=== PATIENT | female | born 1980 | race Caucasian/White ===

== ENCOUNTER 2016-12-29 17:15 | Inpatient (IN) | payer OTHER ==
[2016-12-29] MEDS ORDERED: NALOXONE 0.4 MG/ML 1 ML VIAL IV STA ×3 (18:20→18:48)
[2016-12-29] MEDS ORDERED: SODIUM CHLORIDE 0.9% 2,000 ML IV ONE (18:20)
--- NOTE | 2016-12-29 18:38 | ED ---
General Adult HPI - General Source: patient, family, RN notes reviewed Mode of arrival: wheelchair Limitations: no limitations <Brenda Encarnacion - Last Filed: 12/29/16 19:41> <Stevenson Mcconnell - Last Filed: 12/29/16 21:43> - General Chief complaint: Headache Stated complaint: low blood pressure,dizzy Time Seen by Provider: 12/29/16 18:14 - History of Present Illness Initial comments: 36 yo female presents to the ER with a chief complaint of feeling confused. Patient patient with ranges feeling off. Patient does take chronic pain medication for chronic pain. Patient states she did take these this morning. Patient's states there has been no history of her using drugs. Patient states she takes her she's prescribed and nothing else. Patient states that when she stands up she started very lightheaded. She states sometimes she'll have blurry vision. She states that she's Goes in and out of confusion and feeling like shegoing on. states that he found her just sitting in the bathroom completely out of it so he was concerned. The patient states that she did have a fall today from feeling lightheaded but states that nothing hurts from that. Patient states she hasn't had any abdominal pain she hasn't had any pain with urination she hasn't thrown up. Patient states her whole body just feels weird that she feels a week. Patient states that she was concerned is concerned as well. Patient be seen. She denies any fever. She denies any chest pain or shortness of breath. (Brenda Encarnacion) - Related Data Home Medications Medication Instructions Recorded Confirmed Cyclobenzaprine [Flexeril] 10 mg PO TID 12/29/16 12/29/16 Gabapentin [Neurontin] 300 mg PO BID 12/29/16 12/29/16 LORazepam [Ativan] 0.5 mg PO BID PRN 12/29/16 12/29/16 Lisinopril [Zestril] 20 mg PO DAILY 12/29/16 12/29/16 Morphine Sulfate ER [Ms Contin 30 mg PO Q12HR 12/29/16 12/29/16 30Mg] PARoxetine [Paxil] 20 mg PO DAILY 12/29/16 12/29/16 oxyCODONE-APAP 7.5-325MG [Percocet 1 tab PO DAILY PRN 12/29/16 12/29/16 7.5-325 mg] Allergies Allergy/AdvReac Type Severity Reaction Status Date / Time alprazolam [From Xanax] Allergy Confusion Verified 12/29/16 18:49 Penicillins Allergy Rash/Hives Verified 12/29/16 18:49 Review of Systems ROS Other: All systems not noted in ROS Statement are negative. <Brenda Encarnacion - Last Filed: 12/29/16 19:41> ROS Other: All systems not noted in ROS Statement are negative. <Stevenson Mcconnell - Last Filed: 12/29/16 21:43> ROS Statement: Those systems with pertinent positive or pertinent negative responses have been documented in the HPI. Past Medical History Additional Past Medical History / Comment(s): brain injury History of Any Multi-Drug Resistant Organisms: None Reported Additional Past Surgical History / Comment(s): clavicle surgery Past Psychological History: Anxiety, Depression Smoking Status: Never smoker Past Alcohol Use History: None Reported Past Drug Use History: None Reported <Brenda Encarnacion - Last Filed: 12/29/16 19:41> General Exam Limitations: no limitations General appearance: alert Head exam: Present: atraumatic, normocephalic, normal inspection Eye exam: Present: normal appearance, PERRL, EOMI. Absent: scleral icterus, conjunctival injection, periorbital swelling ENT exam: Present: normal exam, mucous membranes moist Neck exam: Present: normal inspection. Absent: tenderness, meningismus, lymphadenopathy Respiratory exam: Present: normal lung sounds bilaterally. Absent: respiratory distress, wheezes, rales, rhonchi, stridor Cardiovascular Exam: Present: regular rate, normal rhythm, normal heart sounds. Absent: systolic murmur, diastolic murmur, rubs, gallop, clicks GI/Abdominal exam: Present: soft, normal bowel sounds. Absent: distended, tenderness, guarding, rebound, rigid Extremities exam: Present: normal inspection, full ROM, normal capillary refill. Absent: tenderness, pedal edema, joint swelling, calf tenderness Back exam: Present: normal inspection Neurological exam: Present: alert, oriented X3, CN II-XII intact, reflexes normal. Absent: motor sensory deficit Psychiatric exam: Present: normal affect, normal mood Skin exam: Present: warm, dry, intact, normal color. Absent: rash <Brenda Encarnacion - Last Filed: 12/29/16 19:41> Course <Brenda Encarnacion - Last Filed: 12/29/16 19:41> <Stevenson Mcconnell - Last Filed: 12/29/16 21:43> Vital Signs 12/29/16 12/29/16 12/29/16 17:53 19:09 19:41 Temperature 98.4 F Pulse Rate 108 H 118 H Respiratory 16 18 Rate Blood Pressure 76/46 94/50 88/51 O2 Sat by Pulse 94 L 96 Oximetry 12/29/16 12/29/16 12/29/16 19:51 21:17 21:32 Temperature Pulse Rate 129 H 111 H 117 H Respiratory 16 18 18 Rate Blood Pressure 88/54 76/40 101/51 O2 Sat by Pulse 100 100 99 Oximetry - Reevaluation(s) Reevaluation #1: 12/29/16 18:39 After the Narcan the patient states that she can breath better. Patient blood pressure is improving with IV hydration. (Brenda Encarnacion) Reevaluation #2: 12/29/16 19:41 With further history with the patient has had episodes of blackouts before however during that time she is always normal vital signs. He states this is different than her typical black out. The family worked up for in the hospital before. (Brenda Encarnacion) Reevaluation #3: 12/29/16 19:41 This case will be signed out to Dr. Mcconnell. (Brenda Encarnacion) EKG Findings - EKG Comments: EKG Findings:: Sinus tachycardia 126 bpm, normal axis, no atopy, no S-T depressions or elevations, <Brenda Encarnacion - Last Filed: 12/29/16 19:41> Medical Decision Making - Lab Data Result diagrams: 12/29/16 18:35 12/29/16 18:35 <Brenda Encarnacion - Last Filed: 12/29/16 19:41> - Lab Data Result diagrams: 12/29/16 18:35 12/29/16 18:35 <Stevenson Mcconnell - Last Filed: 12/29/16 21:43> - Medical Decision Making 36 yo female presents to the emergency Department chief complaint of altered mental status. Patient does appear to have hypotension 2 L of fluids and 2 IVs were started to hydrate the patient. Patient does have a history of using narcotic medication we did give her Narcan. (Brenda Encarnacion) Medical decision-making. The patient did arrive and is somewhat somnolent condition. Hypotensive. She was given IV Narcan on 3 occasions each time blood pressure went up and she became more alert. Patient states that she is on a pain management contract with her physician and must regardless of how she feels take all her pain medications. She states this morning when she didn't feel well she still to call her pain medications. The patient's labs show white count 13.6 hemoglobin 13 hematocrit of 45, INR 1.0 with a potassium 4.8 to BUN 20 creatinine 2.1 to the GFR of 26. All available history suggesting kidney failure. Glucose 140, troponin less than 0.012. Urine shows [address] of the brain was done and reviewed radiologist his findings are the ventricles and sulci appear normal. There is no mass effect or midline shift. There is no sign of intracranial hemorrhage. The calvarium is intact. Impression; negative unenhanced head computed tomography scan. As read by Dr. Maradiaga X-ray of the chest was done reviewed by radiologist his impression is no active cardiopulmonary disease. Normal heart. As read by Dr. Maradiaga The patient remains wide awake. Blood pressure 102/51. Heart rate stays in the 120 range. Patient reports her heart race normally 110-120. If tried to slow it down medications makes her feel worse. We did discuss the over administration of opiates, oxycodone coat on and benzodiazepines could result in . Dr. Mcconnell (Stevenson Mcconnell) - Lab Data Lab Results 12/29/16 12/29/16 12/29/16 Range/Units 18:35 18:35 18:35 WBC 13.6 H (3.8-10.6) k/uL RBC 5.73 H (3.80-5.40) m/uL Hgb 13.6 (11.4-16.0) gm/dL Hct 45.1 (34.0-46.0) % MCV 78.7 L (80.0-100.0) fL MCH 23.7 L (25.0-35.0) pg MCHC 30.2 L (31.0-37.0) g/dL RDW 14.2 (11.5-15.5) % Plt Count 303 (150-450) k/uL Neutrophils % 78 % Lymphocytes % 16 % Monocytes % 4 % Eosinophils % 1 % Basophils % 0 % Neutrophils # 10.5 H (1.3-7.7) k/uL Lymphocytes # 2.2 (1.0-4.8) k/uL Monocytes # 0.5 (0-1.0) k/uL Eosinophils # 0.2 (0-0.7) k/uL Basophils # 0.1 (0-0.2) k/uL Hypochromasia Marked PT (9.0-12.0) sec INR (<1.1) APTT (22.0-30.0) sec Sodium (137-145) mmol/L Potassium (3.5-5.1) mmol/L Chloride (98-107) mmol/L Carbon Dioxide (22-30) mmol/L Anion Gap mmol/L BUN (7-17) mg/dL Creatinine (0.52-1.04) mg/dL Est GFR (MDRD) Af Amer (>60 ml/min/1.73 sqM) Est GFR (MDRD) Non-Af (>60 ml/min/1.73 sqM) Glucose (74-99) mg/dL Calcium (8.4-10.2) mg/dL Total Bilirubin (0.2-1.3) mg/dL AST (14-36) U/L ALT (9-52) U/L Alkaline Phosphatase (38-126) U/L Ammonia <9 (<30) umol/L Total Creatine Kinase 26 L (30-135) U/L CK-MB (CK-2) 0.4 (0.0-2.4) ng/mL CK-MB (CK-2) Rel Index 1.5 Troponin I <0.012 (0.000-0.034) ng/mL Total Protein (6.3-8.2) g/dL Albumin (3.5-5.0) g/dL Urine Color Urine Appearance (Clear) Urine pH (5.0-8.0) Ur Specific [place] (1.001-1.035) Urine Protein (Negative) Urine Glucose (UA) (Negative) Urine Ketones (Negative) Urine Blood (Negative) Urine Nitrate (Negative) Urine Bilirubin (Negative) Urine Urobilinogen (<2.0) mg/dL Ur Leukocyte Esterase (Negative) Urine RBC (0-5) /hpf Urine WBC (0-5) /hpf Ur Squamous Epith Cells (0-4) /hpf Amorphous Sediment (None) /hpf Urine Bacteria (None) /hpf Hyaline Casts (0-2) /lpf Urine Mucus (None) /hpf Urine Opiates Screen (NotDetected) Ur Oxycodone Screen (NotDetected) Urine Methadone Screen (NotDetected) Ur Propoxyphene Screen (NotDetected) Ur Barbiturates Screen (NotDetected) U Tricyclic Antidepress (NotDetected) Ur Phencyclidine Scrn (NotDetected) Ur Amphetamines Screen (NotDetected) U Methamphetamines Scrn (NotDetected) U Benzodiazepines Scrn (NotDetected) Urine Cocaine Screen (NotDetected) U Marijuana (THC) Screen (NotDetected) 12/29/16 12/29/16 12/29/16 Range/Units 18:35 18:35 20:05 WBC (3.8-10.6) k/uL RBC (3.80-5.40) m/uL Hgb (11.4-16.0) gm/dL Hct (34.0-46.0) % MCV (80.0-100.0) fL MCH (25.0-35.0) pg MCHC (31.0-37.0) g/dL RDW (11.5-15.5) % Plt Count (150-450) k/uL Neutrophils % % Lymphocytes % % Monocytes % % Eosinophils % % Basophils % % Neutrophils # (1.3-7.7) k/uL Lymphocytes # (1.0-4.8) k/uL Monocytes # (0-1.0) k/uL Eosinophils # (0-0.7) k/uL Basophils # (0-0.2) k/uL Hypochromasia PT 9.9 (9.0-12.0) sec INR 1.0 (<1.1) APTT 22.6 (22.0-30.0) sec Sodium 142 (137-145) mmol/L Potassium 4.8 (3.5-5.1) mmol/L Chloride 104 (98-107) mmol/L Carbon Dioxide 23 (22-30) mmol/L Anion Gap 15 mmol/L BUN 20 H (7-17) mg/dL Creatinine 2.12 H (0.52-1.04) mg/dL Est GFR (MDRD) Af Amer 32 (>60 ml/min/1.73 sqM) Est GFR (MDRD) Non-Af 26 (>60 ml/min/1.73 sqM) Glucose 140 H (74-99) mg/dL Calcium 9.1 (8.4-10.2) mg/dL Total Bilirubin 0.3 (0.2-1.3) mg/dL AST 27 (14-36) U/L ALT 39 (9-52) U/L Alkaline Phosphatase 137 H (38-126) U/L Ammonia (<30) umol/L Total Creatine Kinase (30-135) U/L CK-MB (CK-2) (0.0-2.4) ng/mL CK-MB (CK-2) Rel Index Troponin I (0.000-0.034) ng/mL Total Protein 7.6 (6.3-8.2) g/dL Albumin 4.2 (3.5-5.0) g/dL Urine Color Urine Appearance (Clear) Urine pH (5.0-8.0) Ur Specific [place] (1.001-1.035) Urine Protein (Negative) Urine Glucose (UA) (Negative) Urine Ketones (Negative) Urine Blood (Negative) Urine Nitrate (Negative) Urine Bilirubin (Negative) Urine Urobilinogen (<2.0) mg/dL Ur Leukocyte Esterase (Negative) Urine RBC (0-5) /hpf Urine WBC (0-5) /hpf Ur Squamous Epith Cells (0-4) /hpf Amorphous Sediment (None) /hpf Urine Bacteria (None) /hpf Hyaline Casts (0-2) /lpf Urine Mucus (None) /hpf Urine Opiates Screen Detected H (NotDetected) Ur Oxycodone Screen Detected H (NotDetected) Urine Methadone Screen Not Detected (NotDetected) Ur Propoxyphene Screen Not Detected (NotDetected) Ur Barbiturates Screen Not Detected (NotDetected) U Tricyclic Antidepress Detected H (NotDetected) Ur Phencyclidine Scrn Not Detected (NotDetected) Ur Amphetamines Screen Not Detected (NotDetected) U Methamphetamines Scrn Not Detected (NotDetected) U Benzodiazepines Scrn Detected H (NotDetected) Urine Cocaine Screen Not Detected (NotDetected) U Marijuana (THC) Screen Not Detected (NotDetected) 12/29/16 Range/Units 20:05 WBC (3.8-10.6) k/uL RBC (3.80-5.40) m/uL Hgb (11.4-16.0) gm/dL Hct (34.0-46.0) % MCV (80.0-100.0) fL MCH (25.0-35.0) pg MCHC (31.0-37.0) g/dL RDW (11.5-15.5) % Plt Count (150-450) k/uL Neutrophils % % Lymphocytes % % Monocytes % % Eosinophils % % Basophils % % Neutrophils # (1.3-7.7) k/uL Lymphocytes # (1.0-4.8) k/uL Monocytes # (0-1.0) k/uL Eosinophils # (0-0.7) k/uL Basophils # (0-0.2) k/uL Hypochromasia PT (9.0-12.0) sec INR (<1.1) APTT (22.0-30.0) sec Sodium (137-145) mmol/L Potassium (3.5-5.1) mmol/L Chloride (98-107) mmol/L Carbon Dioxide (22-30) mmol/L Anion Gap mmol/L BUN (7-17) mg/dL Creatinine (0.52-1.04) mg/dL Est GFR (MDRD) Af Amer (>60 ml/min/1.73 sqM) Est GFR (MDRD) Non-Af (>60 ml/min/1.73 sqM) Glucose (74-99) mg/dL Calcium (8.4-10.2) mg/dL Total Bilirubin (0.2-1.3) mg/dL AST (14-36) U/L ALT (9-52) U/L Alkaline Phosphatase (38-126) U/L Ammonia (<30) umol/L Total Creatine Kinase (30-135) U/L CK-MB (CK-2) (0.0-2.4) ng/mL CK-MB (CK-2) Rel Index Troponin I (0.000-0.034) ng/mL Total Protein (6.3-8.2) g/dL Albumin (3.5-5.0) g/dL Urine Color Yellow Urine Appearance Cloudy H (Clear) Urine pH 5.5 (5.0-8.0) Ur Specific [place] 1.014 (1.001-1.035) Urine Protein 1+ H (Negative) Urine Glucose (UA) Negative (Negative) Urine Ketones Negative (Negative) Urine Blood Negative (Negative) Urine Nitrate Negative (Negative) Urine Bilirubin Negative (Negative) Urine Urobilinogen <2.0 (<2.0) mg/dL Ur Leukocyte Esterase Small H (Negative) Urine RBC 1 (0-5) /hpf Urine WBC 11 H (0-5) /hpf Ur Squamous Epith Cells 1 (0-4) /hpf Amorphous Sediment Occasional H (None) /hpf Urine Bacteria Rare H (None) /hpf Hyaline Casts 92 H (0-2) /lpf Urine Mucus Many H (None) /hpf Urine Opiates Screen (NotDetected) Ur Oxycodone Screen (NotDetected) Urine Methadone Screen (NotDetected) Ur Propoxyphene Screen (NotDetected) Ur Barbiturates Screen (NotDetected) U Tricyclic Antidepress (NotDetected) Ur Phencyclidine Scrn (NotDetected) Ur Amphetamines Screen (NotDetected) U Methamphetamines Scrn (NotDetected) U Benzodiazepines Scrn (NotDetected) Urine Cocaine Screen (NotDetected) U Marijuana (THC) Screen (NotDetected) Disposition <Brenda Encarnacion - Last Filed: 12/29/16 19:41> <Stevenson Mcconnell - Last Filed: 12/29/16 21:43> Clinical Impression: Polysubstance (including opioids) dependence with physiol dependence Disposition: ADMITTED IP TO THIS [facility] Condition: Serious
[2016-12-29] MEDS: NALOXONE 0.4 MG/ML 10 ML VIAL IVP STA ×2 (18:44→19:07)
[2016-12-29 19:00] LABS: Calcium 9.1 mg/dL (8.4-10.2); Potassium 4.8 mmol/L (3.5-5.1); Total Bilirubin 0.3 mg/dL (0.2-1.3); Total Protein 7.6 g/dL (6.3-8.2)
[2016-12-29 19:02] LABS: Basophils # (A) 0.1 k/uL (0-0.2); Basophils % (A) 0 %; CH 23.6; CHCM 30.2; Eosinophils # (A) 0.2 k/uL (0-0.7); Eosinophils % (A) 1 %; HCT 45.1 % (34.0-46.0); HDW 2.65; HGB 13.6 gm/dL (11.4-16.0); Hypochromasia Marked; Luc # (Auto) 0.17; Luc % (Auto) 1; Lymphocytes # (A) 2.2 k/uL (1.0-4.8); Lymphocytes % (A) 16 %; MCH 23.7 pg (25.0-35.0); MCHC 30.2 g/dL (31.0-37.0); MCV 78.7 fL (80.0-100.0); Mean Platelet Volume 6.1; Monocytes # (A) 0.5 k/uL (0-1.0); Monocytes % (A) 4 %; Neutrophils # (A) 10.5 k/uL (1.3-7.7); Neutrophils % (A) 78 %; RBC 5.73 m/uL (3.80-5.40); RDW 14.2 % (11.5-15.5); WBC 13.6 k/uL (3.8-10.6); WBC (Perox) 13.77
[2016-12-29 19:04] LABS: Creatine Kinase 26 U/L (30-135)
[2016-12-29 19:09] LABS: Partial Thromboplastin Time 22.6 sec (22.0-30.0); Prothrombin Time 9.9 sec (9.0-12.0)
--- NOTE | 2016-12-29 19:16 | XR ---
EXAMINATION TYPE: XR chest 2V DATE OF EXAM: 12/29/2016 7:13 PM COMPARISON: NONE HISTORY: Confusion TECHNIQUE: Frontal and lateral views of the chest are obtained. FINDINGS: Heart and mediastinum are normal. Lungs are clear. Diaphragm is normal. There is a late wi th screws fixing the left clavicle. There are chest leads. Bony thorax is intact. IMPRESSION: No active cardiopulmonary disease. Normal heart.
[2016-12-29 19:18] LABS: Creatine Kinase MB 0.4 ng/mL (0.0-2.4); Troponin I <0.012 ng/mL (0.000-0.034)
--- NOTE | 2016-12-29 20:08 | CT ---
EXAMINATION TYPE: CT brain wo con DATE OF EXAM: 12/29/2016 8:04 PM COMPARISON: NONE HISTORY: Low blood pressure and syncope. CT DLP: 1091.00 mGycm Automated exposure control for dose reduction was used. FINDINGS: Ventricles and sulci appear normal. There is no mass effect or midline shift. There is no sign of int racranial hemorrhage. The calvarium is intact. IMPRESSION: Negative unenhanced head CT scan.
[2016-12-29 20:18] LABS: Amorphous Sediment,Urine Occasional /hpf; Appearance,Urine Cloudy (Clear); Bacteria,Urine Rare /hpf; Bilirubin,Urine Negative (Negative); Glucose,Urine (UA) Negative (Negative); Ketones,Urine Negative (Negative); Leukocyte Esterase,Urine Small (Negative); Mucus,Urine Many /hpf; Nitrite,Urine Negative (Negative); PH, Urine 5.5 (5.0-8.0); Particle Count 14805; Protein,Urine 1+ (Negative); RBC,Urine 1 /hpf (0-5); Specific Gravity,Urine 1.014 (1.001-1.035); Squamous Epithelial Cell,Urine 1 /hpf (0-4); UA Billing (MACRO vs. MICRO) MICRO; Urobilinogen,Urine <2.0 mg/dL (<2.0); WBC,Urine 11 /hpf (0-5)
[2016-12-29] MEDS ORDERED: NALOXONE 0.4 MG/ML 1 ML VIAL IV PRN (21:44)
[2016-12-30] MEDS: SODIUM CHLORIDE 0.9% 1,000 ML IV SCH ×2 (00:57→07:51)
[2016-12-30 02:31] LABS: Creatine Kinase 23 U/L (30-135)
[2016-12-30 02:43] LABS: Creatine Kinase MB 0.2 ng/mL (0.0-2.4); Troponin I <0.012 ng/mL (0.000-0.034)
[2016-12-30 04:07] VITALS: RESP 16
[2016-12-30 07:58] VITALS: BP 110/60; PULSE 107; TEMP 97.5
[2016-12-30 08:36] LABS: Creatine Kinase 27 U/L (30-135)
[2016-12-30 08:47] LABS: Creatine Kinase MB <0.2 ng/mL (0.0-2.4); Troponin I <0.012 ng/mL (0.000-0.034)
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
[2016-12-30] MEDS ORDERED: GABAPENTIN 300 MG CAP PO SCH (09:00)
[2016-12-30] MEDS ORDERED: PARoxetine 20 MG TAB PO SCH (09:00)
[2016-12-30] MEDS ORDERED: LISINOPRIL 20 MG TAB PO SCH (09:00)
[2016-12-30] MEDS ORDERED: FAMOTIDINE 20 MG TAB PO SCH (09:00)
== END 2016-12-30 09:56 | disposition home or self-care (01) | DRG 948 ==
LOC: EC 17:15 → 6SEL 21:44
PROVIDERS: ADMIT Family Medicine; ATTEND Family Medicine
DX: R41.82 Altered mental status, unspecified (principal); I95.9 Hypotension, unspecified; G89.29 Other chronic pain; R00.0 Tachycardia, unspecified; F41.9 Anxiety disorder, unspecified; I10 Essential (primary) hypertension; F32.9 Major depressive disorder, single episode, unspecified; Z79.891 Long term (current) use of opiate analgesic; Z79.899 Other long term (current) drug therapy
CPT/HCPCS: 36415; 70450; 71020; 80053; 80306; 81001; 82140; 82550; 82553; 84484; 85025; 85610; 85730; 93005; 96361; 96374; 99285

== ENCOUNTER → 2017-01-27 | Outpatient (CLI) | payer OTHER ==
--- NOTE | 2017-01-28 07:49 | ECHOF ---
Referral Reason:I95.9 hypotension R42 Dizziness R00.0 tachycardia MEASUREMENTS -------- HEIGHT: 162.6 cm WEIGHT: 108.0 kg BP: RVIDd: 2.5 cm (< 3.3) IVSd: 1.1 cm (0.6 - 1.1) LVIDd: 3.2 cm (3.9 - 5.3) LVPWd: 1.3 cm (0.6 - 1.1) IVSs: 1.6 cm LVIDs: 2.3 cm LVPWs: 1.3 cm LA Diam: 2.8 cm (2.7 - 3.8) Ao Diam: 2.9 cm (2.0 - 3.7) AV Cusp: 2.1 cm (1.5 - 2.6) LA Diam: 3.3 cm (2.7 - 3.8) MV EXCURSION: 16.399 mm (> 18.000) MV EF SLOPE: 71 mm/s (70 - 150) EPSS: 0.5 cm MV E Michael: 0.68 m/s MV DecT: 197 ms MV A Michael: 0.64 m/s MV E/A Ratio: 1.06 RAP: 5.00 mmHg RVSP: 20.21 mmHg FINDINGS -------- Sinus rhythm. This was a technically adequate study. There is mild concentric left ventricular hypertrophy. Overall left ventricular systolic function is normal with, an EF between 55 - 60 %. The right ventricle is normal in size. The left atrial size is normal. The right atrial size is normal. There is mild aortic valve sclerosis. There is no evidence of aortic regurgitation. There is trace to mild mitral regurgitation. Mild tricuspid regurgitation present. There is no evidence of pulmonary hypertension. The right ventricular systolic pressure, as measured by Doppler, is 20.21mmHg. There is no pulmonic regurgitation present. The aortic root size is normal. There is no pericardial effusion. CONCLUSIONS -------- 1. There is mild concentric left ventricular hypertrophy. 2. There is mild aortic valve sclerosis. 3. There is trace to mild mitral regurgitation. 4. Mild tricuspid regurgitation present. 5. There is no evidence of pulmonary hypertension. 6. The right ventricular systolic pressure, as measured by Doppler, is 20.21mmHg. SALES REPRESENTATIVE CONSULTANT: Amina Milner RDCS
== END ==
LOC: RADECHMAIN 13:25
PROVIDERS: ATTEND Family Medicine
DX: I95.9 Hypotension, unspecified (principal); R42 Dizziness and giddiness; R00.0 Tachycardia, unspecified
CPT/HCPCS: 93306

== ENCOUNTER → 2019-01-11 | Outpatient (CLI) | payer OTHER, MEDICARE ==
--- NOTE | 2019-01-18 12:11 | HM ---
HOLTER MONITOR REPORT DATE OF SERVICE: . INDICATION OF THE STUDY: Palpitations. The patient was monitored for 24 hours. The baseline rhythm appeared to be a sinus mechanism with a minimum heart rate of 66 beats per minute, max heart rate 166 beats per minute, average heart rate of 100 beats per minute. Ventricular ectopic events were present in less than 1% of the total beats count and presented as isolated PVCs as well as trigeminy. Supraventricular ectopic events were present in less than 1% of the total beats count and presented as isolated PACs. No evidence of sinus pause or sinus arrest seen. The patient reported no symptoms. CONCLUSION: 1. Sinus rhythm as a baseline mechanism. 2. Rare ventricular ectopic events. 3. Rare supraventricular ectopic events. 4. No evidence of any sinus pause or sinus arrest. 5. No evidence of any advanced AV block. 6. No evidence of any atrial fibrillation or SVT seen. MMODL / IJN: [id number] /
== END | disposition home or self-care (01) ==
LOC: RADECHMAIN 12:25
PROVIDERS: ATTEND Family Medicine
DX: R00.2 Palpitations (principal)
CPT/HCPCS: 93225; 93226

== ENCOUNTER → 2019-02-25 | Outpatient (CLI) | payer MEDICARE, OTHER ==
[2019-02-25 17:58] LABS: Basophils % (A) 1 %; Eosinophils # (A) 0.1 k/uL (0-0.7); Eosinophils % (A) 2 %; HCT 43.8 % (34.0-46.0); HGB 13.1 gm/dL (11.4-16.0); Hypochromasia Moderate; Lymphocytes # (A) 1.7 k/uL (1.0-4.8); Lymphocytes % (A) 29 %; MCH 22.5 pg (25.0-35.0); MCHC 29.9 g/dL (31.0-37.0); MCV 75.3 fL (80.0-100.0); Mean Platelet Volume 6.6; Microcytosis Slight; Monocytes # (A) 0.3 k/uL (0-1.0); Monocytes % (A) 4 %; Neutrophils # (A) 3.9 k/uL (1.3-7.7); Neutrophils % (A) 63 %; Platelet Count 248 k/uL (150-450); RBC 5.82 m/uL (3.80-5.40); WBC 6.1 k/uL (3.8-10.6)
== END ==
LOC: LABPAT 16:22
PROVIDERS: ATTEND Obstetrics & Gynecology
DX: Z01.812 Encounter for preprocedural laboratory examination (principal)
CPT/HCPCS: 85025

== ENCOUNTER 2019-03-01 06:30 | Day surgery (SDC) | payer MEDICARE, OTHER ==
[2019-02-23 09:49] VITALS: BMI 42.4
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
[~2019-03-01 06:30] MED LIST: DEXAMETHASONE SOD PHOSPHATE 10 MG/ML 1 ML VIAL IV ONE; LACTATED RINGERS 1,000 ML IV SCH; LIDOCAINE 1% 20 ML VIAL (10MG/ML) FOR IV START INTRADERMA PRN; MIDAZOLAM (PF) 2 MG/2 ML VIAL IV PRN; ONDANSETRON 4 MG/2 ML VIAL IVP ONE; Pre Op ABX Message 1 EACH MISC MISCELLANE ONE; fentaNYL (PF) 50 MCG/ML 2 ML AMP IV PRN
[2019-03-01 07:04] VITALS: TEMP 97.7
[2019-03-01] MEDS ORDERED: PROPOFOL 10 MG/ML 20 ML VIAL IV ONE (07:23)
[2019-03-01] MEDS ORDERED: KETOROLAC 30 MG/ML 1 ML VIAL ONE (07:23)
[2019-03-01] MEDS ORDERED: LIDOCAINE 1% INJ 10MG/ML (20 ML MDV) ONE (07:23)
[2019-03-01] MEDS ORDERED: SUCCINYLCHOLINE CHLORIDE VIAL 200 MG/10 ML VIAL IV ONE (07:23)
[2019-03-01] MEDS ORDERED: MIDAZOLAM 2 MG/2 ML VIAL ONE (07:23)
[2019-03-01] MEDS ORDERED: fentaNYL (PF) 50 MCG/ML 2 ML AMP ONE (07:23)
[2019-03-01] MEDS ORDERED: FERRIC SUBSULFATE (MONSELS) JAR TOPICAL ONE (07:26)
[2019-03-01] MEDS ORDERED: LIDOCAINE 1%-EPI 1:100,000 20 ML VIAL SQ ONE (07:27)
[2019-03-01] MEDS ORDERED: ACETIC ACID 15 DROPS/ML DROPS MISCELLANE ONE (07:27)
[2019-03-01] MEDS ORDERED: BUPIVACAIN-EPI 0.5%-1:200,000 30 ML VIAL SQ ONE (07:28)
--- NOTE | 2019-03-01 08:05 | P.OP ---
Date of Procedure: 03/01/19 Preoperative Diagnosis: WEST-2 Postoperative Diagnosis: Cervical dysplasia Procedure(s) Performed: Colposcopy with loop electrocautery excision procedure Anesthesia: ALETAA Surgeon: Taylor Myers Estimated Blood Loss (ml): 30 Pathology: other (Ectocervix with the 12 o'clock position marked with a white suture, 6 o'clock position marked with a black suture, and separate piece is the 3:00 border) Condition: stable Disposition: same day Indications for Procedure: This is a 38-year-old female 2 para 2 who presents for loop electrocautery excision procedure secondary to WEST-2. Her last Pap smear was performed on 12/21/2018 and revealed high-grade squamous intraepithelial lesion of the cervix. She underwent colposcopy on 01/14/2019 that revealed WEST-2. In light of these findings, she has consented to loop electrocautery excision procedure with colposcopy. Operative Findings: Acetowhite and Lugol white areas are seen at approximately 10 to 12 o'clock position. No mosaicism is noted. Transition zone is seen entirely. Description of Procedure: The patient is taken to the operating room where she is placed in the dorsal lithotomy position. She is prepped and draped in the normal sterile fashion. Her bladder is drained with a catheter. Examination is performed under anesthesia. Uterus is found to be mid position with no adnexal masses palpated. Next a coated bivalve speculum was placed in the patient's vagina. The cervix is then swabbed with 5% acetic acid and colposcopy is performed. A acetowhite area is noted at the 12 to 10:00 border. No mosaicism was seen. Next the cervix is swabbed with Lugol solution. The same areas Lugol white. Transition zone is seen entirely. Next the cervix was circumferentially injected with a 50-50 mixture of 1% lidocaine with epinephrine and half percent bupivacaine. Approximately 5 mL were injected circumferentially around the cervix using a spinal needle. Next the large cutting loop was used with 35 W of cutting power to swipe from left to right. A separate piece on the 3:00 border was also removed with a large loop. Next a ball-tipped cautery was used to cauterize the bed left behind. Excellent hemostasis is noted. No active bleeding is noted after cauterization. Next the bed is swabbed with Monsel solution for hemostasis. All instruments are removed from the vagina. All sponge and needle counts are correct. Patient is then taken to recovery room in stable condition.
[2019-03-01 09:01] VITALS: RESP 16
[2019-03-01] MEDS ORDERED: LACTATED RINGERS 1,000 ML IV ONE ×2 (09:35)
[2019-03-01 10:30] VITALS: BP 119/79; PULSE 67
== END 2019-03-01 10:50 | disposition home or self-care (01) ==
LOC: OR 06:30
PROVIDERS: ATTEND Obstetrics & Gynecology
DX: D06.7 Carcinoma in situ of other parts of cervix (principal); Z98.51 Tubal ligation status; I10 Essential (primary) hypertension; M19.90 Unspecified osteoarthritis, unspecified site; Z83.3 Family history of diabetes mellitus; Z82.49 Family history of ischemic heart disease and other diseases of the circulatory system; Z79.899 Other long term (current) drug therapy; Z88.0 Allergy status to penicillin; Z88.8 Allergy status to other drugs, medicaments and biological substances
CPT/HCPCS: 81025; 88307; 57522; J2250; J0330; J1100; J2405; J2001; J3010; J1885; J2704

== ENCOUNTER 2020-03-11 21:16 | Inpatient (IN) | payer MEDICARE, MEDICAID ==
[2020-03-11] MEDS ORDERED: SODIUM CHLORIDE 0.9% 1,000 ML IV STA (21:45)
[2020-03-11 22:24] LABS: Basophils % (A) 0 %; Eosinophils # (A) 0.2 k/uL (0-0.7); Eosinophils % (A) 3 %; HCT 38.9 % (34.0-46.0); Hypochromasia Slight; Lymphocytes # (A) 2.1 k/uL (1.0-4.8); Lymphocytes % (A) 36 %; MCH 23.2 pg (25.0-35.0); MCHC 30.7 g/dL (31.0-37.0); MCV 75.6 fL (80.0-100.0); Mean Platelet Volume 7.5; Microcytosis Slight; Monocytes # (A) 0.4 k/uL (0-1.0); Monocytes % (A) 6 %; Neutrophils # (A) 3.1 k/uL (1.3-7.7); Neutrophils % (A) 53 %; Platelet Count 226 k/uL (150-450); RBC 5.15 m/uL (3.80-5.40); RDW 14.8 % (11.5-15.5); WBC 5.9 k/uL (3.8-10.6)
[2020-03-11 22:27] LABS: ALT 12 U/L (4-34); AST 20 U/L (14-36); Acetaminophen <10.0 ug/mL; African American GFR (CKD) >90 (>60 ml/min/1.73 sqM); Albumin 3.9 g/dL (3.5-5.0); Alcohol <10 mg/dL; Alkaline Phosphatase 114 U/L (38-126); Anion Gap 5 mmol/L; Blood Urea Nitrogen 13 mg/dL (7-17); Calcium 8.6 mg/dL (8.4-10.2); Carbon Dioxide 28 mmol/L (22-30); Chloride 105 mmol/L (98-107); Glucose 85 mg/dL (74-99); Non-African American GFR(CKD) >90 (>60 ml/min/1.73 sqM); Potassium 3.8 mmol/L (3.5-5.1); Salicylate <1.0 mg/dL; Sodium 138 mmol/L (137-145); Total Bilirubin 0.3 mg/dL (0.2-1.3); Total Protein 6.8 g/dL (6.3-8.2)
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
[2020-03-11 23:17] LABS: Amphetamine Screen,Urine Not Detected (NotDetected); Barbiturate Screen,Urine Not Detected (NotDetected); Benzodiazepines Screen,Urine Detected (NotDetected); Cocaine Screen,Urine Not Detected (NotDetected); Methadone Screen, Urine Not Detected (NotDetected); Opiate Screen,Urine Not Detected (NotDetected); Oxycodone Screen, Urine Not Detected (NotDetected); Phencyclidine Screen,Urine Not Detected (NotDetected); Tricyclic Antidepressant,Urine Detected (NotDetected); Urn Cannabinoid Scrn Not Detected (NotDetected)
[2020-03-12] MEDS ORDERED: MAG HYDROX/AL HYDROX/SIMETH 30 ML CUP PO PRN (01:36)
[2020-03-12] MEDS ORDERED: ZIPRASIDONE 20 MG VIAL IM PRN (01:36)
[2020-03-12] MEDS ORDERED: MAGNESIUM HYDROXIDE 2,400 MG/10 ML CUP PO PRN (01:36)
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
[2020-03-12] MEDS: VENLAFAXINE HCL ER 37.5 MG CAP PO SCH (13:59)
[2020-03-12] MEDS: lamoTRIgine 25 MG TAB PO SCH ×2 (13:59→20:53)
[2020-03-12] MEDS: CYCLOBENZAPRINE 10 MG TAB PO PRN (14:01)
[2020-03-12] MEDS: MELATONIN 5 MG TABLET PO SCH (20:53)
[2020-03-12 22:12] LABS: Hemoglobin A1C 5.8 % (4.0-6.0)
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
[2020-03-13 07:14] LABS: ALT 13 U/L (4-34); AST 18 U/L (14-36); African American GFR (CKD) >90 (>60 ml/min/1.73 sqM); Albumin 3.9 g/dL (3.5-5.0); Alkaline Phosphatase 108 U/L (38-126); Anion Gap 9 mmol/L; Bilirubin,Unconjugated 0.5 mg/dL (0.0-1.1); Blood Urea Nitrogen 14 mg/dL (7-17); Calcium 8.9 mg/dL (8.4-10.2); Carbon Dioxide 24 mmol/L (22-30); Chloride 107 mmol/L (98-107); Cholesterol 157 mg/dL (<200); Glucose 81 mg/dL (74-99); HDL Cholesterol 50 mg/dL (40-60); LDL Cholesterol,Calculated 81 mg/dL (0-99); Non-African American GFR(CKD) >90 (>60 ml/min/1.73 sqM); Potassium 3.9 mmol/L (3.5-5.1); Sodium 140 mmol/L (137-145); Total Bilirubin 0.3 mg/dL (0.2-1.3); Total Protein 7.1 g/dL (6.3-8.2); Triglycerides 128 mg/dL (<150)
[2020-03-13] MEDS: lamoTRIgine 25 MG TAB PO SCH (09:06)
[2020-03-13] MEDS: VENLAFAXINE HCL ER 37.5 MG CAP PO SCH (09:06)
--- NOTE | 2020-03-13 09:43 | P.PN ---
Progress Note - Text Progress Note Date: 03/13/20 Interval History: Patient was seen laying down in her bed this morning and was directable and ag reeable to speak with machine sign writer in the office. Patient appears to be alert and states that she feels "tired" this morning. She states that her mood has mildly improved along with her anxiety as well. She states that she was able to sleep through the night pretty well last night. She states that she has not gone to any groups however was requesting and asking if the group can be tailored towards grief and when asked why patient explained that majority of her depression revolves around her father passing away. She states that she misses her home and spoke to her boyfriend last night who "wants me home". She claims that she missed breakfast this morning however has a fair appetite. At this time patient denies any suicidal or homical ideations, intent or plan. Patient denies any auditory, visual hallucinations and denies any paranoia or delusions. Patient denies any side effects from the medications and has been compliant with meds. Mental Status Exam: General Appearance: Patient appears to be stated age is obese, alert, directable, and attempts to cooperate. Patient appears to have poor hygiene and grooming. Behavior: Patient is seated without any agitated behavior. Speech: Patient's speech is fluent and nonpressured. Soft-spoken. Mood/Affect: Patient reports their mood is mildly improving, affect is congruent and constricted. Suicidality/Homicidality: Patient denies having any homicidal ideation intent or plan. Denies any suicidal ideations intent or plan Perceptions: Patient denies any visual hallucinations and denies any auditory hallucinations Though content/process: There is no evidence of any delusional thought content and thought process is linear and goal-directed. Guarded/concrete. Memory and concentration: AOX3, grossly intact for the purposes of this session. Judgment and insight: poor, mildly improving. Assessment Depressive disorder unspecified, rule out bipolar depression Anxiety disorder unspecified Plan: -Patient continues to meet criteria for inpatient psychiatric admission for symptom stabilization and safety. Patient has signed adult voluntary form and medication consent and was placed in patient's chart. -Medications: We'll increase Lamictal to 75 mg nightly for mood stabilization/depression, increase Effexor to 75 mg daily for mood/anxiety. We'll continue with melatonin 5 mg daily at bedtime for sleep. -When necessary Geodon for agitation/aggression. -NRT -not need his patient does not smoke -SW on board for discharge planning. Encouraged the patient to participate in milieu. Likely discharge back home before the end of the week.
[2020-03-13] MEDS: CYCLOBENZAPRINE 10 MG TAB PO PRN (15:37)
[2020-03-13 16:31] VITALS: RESP 16
[2020-03-13] MEDS: PREGABALIN 50 MG CAP PO SCH (18:45)
[2020-03-13] MEDS: METOPROLOL TARTRATE 25 MG TAB PO SCH (18:45)
[2020-03-13] MEDS ORDERED: lamoTRIgine 25 MG TAB PO SCH (21:00)
[2020-03-13] MEDS ORDERED: METOPROLOL TARTRATE 25 MG TAB PO SCH (21:00)
[2020-03-13] MEDS: MELATONIN 5 MG TABLET PO SCH (21:37)
[2020-03-14] MEDS: METOPROLOL TARTRATE 25 MG TAB PO SCH ×2 (09:10→21:23)
[2020-03-14] MEDS: VENLAFAXINE HCL ER 75 MG CAP PO SCH (09:10)
[2020-03-14] MEDS: CYCLOBENZAPRINE 10 MG TAB PO PRN ×2 (09:10→16:15)
[2020-03-14] MEDS: PREGABALIN 50 MG CAP PO SCH ×3 (09:10→21:24)
[2020-03-14] MEDS: ACETAMINOPHEN TAB 325 MG TAB PO PRN ×2 (09:11→21:24)
--- NOTE | 2020-03-14 12:50 | P.PN ---
Progress Note - Text Progress Note Date: 03/14/20 Interval History: Patient was seen wandering the hallways this morning and was directable and ag reeable to speak with newspaper writer in the office. Patient appeared to have a brighter affect this morning and states that she is doing "much better". She claims that her depression has been getting better and anxiety is well. She states that she feels medications are helping her and was more future oriented in her conversation. She spoke about many instances in the past where she did not get along well with her family members and claims that "I don't know why they don't like me". She was attempting to self reflect back on different situations in her life. She states that she continues to miss her father who 4 years ago around this time. She claimed that she also misses her daughters and does not get to see them very often. She states that she slept well last night and denied any overnight complaints. She claims that her energy and appetite have been improving. At this time patient denies any suicidal or homical ideations, intent or plan. Patient denies any auditory, visual hallucinations and denies any paranoia or delusions. Patient denies any side effects from the medications and has been compliant with meds. Mental Status Exam: General Appearance: Patient appears to be stated age is obese, alert, directable, and attempts to be cooperate. Patient appears to have improving hygiene and grooming. Behavior: Patient is seated without any agitated behavior. Speech: Patient's speech is fluent and nonpressured. Soft-spoken. Mood/Affect: Patient reports their mood is mildly improving, affect is congruent and appears brighter. Suicidality/Homicidality: Patient denies having any homicidal ideation intent or plan. Denies any suicidal ideations intent or plan Perceptions: Patient denies any visual hallucinations and denies any auditory hallucinations Though content/process: There is no evidence of any delusional thought content and thought process is linear and goal-directed. More future oriented. Memory and concentration: AOX3, grossly intact for the purposes of this session. Judgment and insight: mildly improving. Assessment Depressive disorder unspecified, rule out bipolar depression Anxiety disorder unspecified Plan: -Patient continues to meet criteria for inpatient psychiatric admission for symptom stabilization and safety. Patient has signed adult voluntary form and medication consent and was placed in patient's chart. -Medications: We'll increase Lamictal to 100 mg nightly for mood stabilization/depression, continue with Effexor to 75 mg daily for mood/anxiety. We'll continue with melatonin 5 mg daily at bedtime for sleep. -When necessary Geodon for agitation/aggression. -NRT -not need his patient does not smoke -SW on board for discharge planning. Encouraged the patient to participate in milieu. toll test worker to contact patient's sister Josephine Mclaughlin it [phone]. Likely discharge back home tomorrow.
[2020-03-14] MEDS ORDERED: lamoTRIgine 100 MG TAB PO SCH (21:00)
[2020-03-14] MEDS: MELATONIN 5 MG TABLET PO SCH (21:23)
[2020-03-15 08:18] VITALS: BP 111/65; PULSE 108
[2020-03-15] MEDS: PREGABALIN 50 MG CAP PO SCH (08:19)
[2020-03-15] MEDS: CYCLOBENZAPRINE 10 MG TAB PO PRN (08:19)
[2020-03-15] MEDS: VENLAFAXINE HCL ER 75 MG CAP PO SCH (08:19)
[2020-03-15] MEDS: METOPROLOL TARTRATE 25 MG TAB PO SCH (08:19)
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
[2020-03-15 12:07] VITALS: TEMP 97.4
== END 2020-03-15 12:54 | disposition home or self-care (01) | DRG 885 ==
LOC: EC 21:16 → 3MHU 03-12 01:35
PROVIDERS: ADMIT Psychiatry & Neurology Psychiatry; ATTEND Psychiatry & Neurology Psychiatry
DX: F32.2 Major depressive disorder, single episode, severe without psychotic features (principal); F11.20 Opioid dependence, uncomplicated; Z68.41 Body mass index [BMI] 40.0-44.9, adult; E66.9 Obesity, unspecified; T40.2X2A Poisoning by other opioids, intentional self-harm, initial encounter; T42.6X2A Poisoning by other antiepileptic and sedative-hypnotic drugs, intentional self-harm, initial encounter; T43.222A Poisoning by selective serotonin reuptake inhibitors, intentional self-harm, initial encounter; T42.4X2A Poisoning by benzodiazepines, intentional self-harm, initial encounter; F12.90 Cannabis use, unspecified, uncomplicated; F41.9 Anxiety disorder, unspecified; G89.21 Chronic pain due to trauma; I10 Essential (primary) hypertension; M19.90 Unspecified osteoarthritis, unspecified site; Z91.5 Personal history of self-harm; Z79.899 Other long term (current) drug therapy; Z86.79 Personal history of other diseases of the circulatory system; Z86.69 Personal history of other diseases of the nervous system and sense organs; Z98.890 Other specified postprocedural states; Z88.0 Allergy status to penicillin; Z88.8 Allergy status to other drugs, medicaments and biological substances; Z83.3 Family history of diabetes mellitus; Z82.49 Family history of ischemic heart disease and other diseases of the circulatory system; Z83.49 Family history of other endocrine, nutritional and metabolic diseases; Z80.1 Family history of malignant neoplasm of trachea, bronchus and lung; Z81.2 Family history of tobacco abuse and dependence
CPT/HCPCS: 36415; 80048; 80053; 80061; 80076; 80306; 80320; 80329; 81025; 82075; 83036; 83520; 84443; 85025; 93005; 96360; 96361; 99285

== ENCOUNTER → 2020-08-27 | Outpatient (CLI) | payer MEDICARE, OTHER ==
--- NOTE | 2020-08-27 16:19 | US ---
EXAMINATION TYPE: US pelvis complete transvag DATE OF EXAM: 08/27/2020 COMPARISON: CLINICAL HISTORY: N93.8 Dysfunctional uterine bleeding. abnormal periods. patient states having part ial cervix removed. TECHNIQUE: Transvaginal (TV) and Transabdominal (TA) . Transabdominal sonographic images of the pel vis were acquired. Transvaginal sonographic images were medically necessary to better assess the fol lowing anatomy: Endometrium Date of LMP: 08/25/2020, EXAM MEASUREMENTS: Uterus: 7.5 x 4.8 x 3.4 cm Endometrial Stripe: 0.3 cm Right Ovary: 2.0 x 1.5 x 1.9 cm Left Ovary: 2.5 x 1.3 x 1.6 cm 1. Uterus: Anteverted Heterogenous 2. Endometrium: wnl 3. Right Ovary: Follicle seen 4. Left Ovary: wnl 5. Bilateral Adnexa: wnl 6. Posterior cul-de-sac: no free fluid IMPRESSION: No distinct abnormality seen.
== END | disposition home or self-care (01) ==
LOC: RADUSWWP 15:06
PROVIDERS: ATTEND Obstetrics & Gynecology
DX: N93.8 Other specified abnormal uterine and vaginal bleeding (principal)
CPT/HCPCS: 76830; 76856